=== PATIENT | female | born 1955 | race Two or more races ===

== ENCOUNTER 2017-07-04 13:18 | Emergency (ER) | payer SELFPAY ==
[~2017-07-04] VITALS: Ht 167.6 cm; Wt 113.4 kg
[2017-07-04 15:47] LABS: Basophils # (auto) 0.2 uL; Basophils % (auto) 2.4 % (0.0-2.0); Eosinophils # (auto) 0.1 uL; Eosinophils % (auto) 1.4 % (0.0-7.0); Hematocrit 43.1 % (36.0-46.0); Hemoglobin 14.5 g/dL (12.2-16.2); Lymphocytes % (auto) 21.3 % (10.0-50.0); Mean Corpuscular Hemoglobin 29.9 pg (28.0-32.0); Mean Corpuscular Hgb Conc. 33.6 g/dL (32.0-36.0); Mean Corpuscular Volume 88.8 fL (80.0-100.0); Monocytes # (auto) 0.4 uL; Monocytes % (auto) 4.7 % (0.0-12.0); Neutrophils # (auto) 6.7 uL; Neutrophils % (auto) 70.2 % (37.0-80.0); Nucleated Red Blood Cells % 0.3 %; Platelet Count (auto) 269 10^3/uL (140-450); Red Blood Cells 4.85 10^6/uL (4.0-5.20); Red Cell Distribution Width 13.6 % (11.8-14.3); White Blood Cell 9.5 10^3/uL (4.4-10.8)
[2017-07-04 15:55] LABS: Alanine Aminotransferase 29 U/L (13-56); Albumin 3.4 g/dL (3.4-5.0); Anion Gap 8 (5-15); Aspartate Aminotransferase 20 U/L (15-37); BUN/Creatinine Ratio 20.3; Blood Urea Nitrogen 16 mg/dL (7-18); Calcium 8.6 mg/dL (8.5-10.1); Carbon Dioxide 24 mmol/L (21-32); Chloride 104 mmol/L (98-107); GFR African American 95 mL/min; GFR Non-African American 79 mL/min; Glucose 313 mg/dL (74-106); Potassium 4.2 mmol/L (3.5-5.1); Sodium 136 mmol/L (136-145)
[2017-07-04 15:59] LABS: Alkaline Phosphatase 113 U/L (45-117); Bilirubin, Total 0.4 mg/dL (0.2-1.0); Total Protein 8.2 g/dL (6.4-8.2)
[2017-07-05] MEDS ORDERED: SODIUM CHLORIDE 0.9% 1,000 ML IV ONE (10:10)
[2017-07-05] MEDS ORDERED: InsuLIN REG 1unit/0.01ml Soln (100units/ml) IV ONE ×2 (10:15→11:45)
[2017-07-05] MEDS ORDERED: TETANUS-DIPTH-ACEL PERTUSSIS 0.5ML SYRG IM ONE (10:15)
[2017-07-05] MEDS ORDERED: ACETAMINOPHEN 500 MG TAB PO ONE (11:45)
[2017-07-05 12:02] LABS: Urine Bacteria NONE SEEN /hpf (None Seen); Urine Blood Negative /uL (Negative); Urine Specific Gravity 1.009 (1.001-1.035); Urine WBC 70 /hpf (0 - 5)
[2017-07-05 12:15] LABS: INR 1.28 (0.9-1.15); Partial Thromboplastin Time 28.2 sec (22.64-33.71)
[2017-07-05] MEDS ORDERED: cefTRIAXone 1GM/10ml IVPUSH 10 ML IV ONE (12:45)
[2017-07-05] MEDS ORDERED: KETOROLAC TROMETH 30 MG/ML 1ML VIAL IV ONE (12:45)
[2017-07-05] MEDS ORDERED: ONDANSETRON HCL 4 MG/2 ML VIAL ONE (13:07)
[2017-07-05] MEDS ORDERED: ONDANSETRON HCL 4 MG/2 ML VIAL IV ONE (13:15)
[2017-07-05 13:59] VITALS: BP 142/81
== END 2017-07-05 14:00 | disposition home or self-care (01) ==
LOC: ER 13:18
DX: S00.01XA Abrasion of scalp, initial encounter (principal); N39.0 Urinary tract infection, site not specified; I10 Essential (primary) hypertension; E11.9 Type 2 diabetes mellitus without complications; I48.91 Unspecified atrial fibrillation; Z90.89 Acquired absence of other organs; W19.XXXA Unspecified fall, initial encounter; Y93.89 Activity, other specified; Y99.8 Other external cause status; Y92.89 Other specified places as the place of occurrence of the external cause
CPT/HCPCS: 36415; 70450; 71020; 80053; 81001; 82962; 83735; 84443; 84484; 85025; 85610; 85730; 90715; 93005; 96361; 96374; 96375; 99285; J1815; J1885; J2405

== ENCOUNTER 2018-11-17 17:13 | Emergency (ER) | payer MEDICAID ==
[~2018-11-17] VITALS: Ht 167.6 cm; Wt 113.4 kg
[~2018-11-17 17:13] MED LIST: ASP81EC PO; CARV3.1240 PO; CITA-77 PO; DIGO0.2570 PO; DILT120T3 PO; FLUT110A INH; GABA-339 PO; HYDR25TA4 PO; IBUP800T24 PO; LISI40TA PO; METF-370 PO; OME20T PO; POTA10TA51 PO; RIVA20TA PO; SERDISK IN; SIMV10TA84 PO
[2018-11-17 17:52] LABS: Basophils # (auto) 0.1 uL; Basophils % (auto) 0.9 % (0.0-2.0); Eosinophils # (auto) 0.1 uL; Eosinophils % (auto) 1.5 % (0.0-7.0); Hemoglobin 14.6 g/dL (12.2-16.2); Lymphocytes # (auto) 2.2 uL; Lymphocytes % (auto) 23.5 % (10.0-50.0); Mean Corpuscular Hemoglobin 29.2 pg (28.0-32.0); Mean Corpuscular Hgb Conc. 33.3 g/dL (32.0-36.0); Mean Corpuscular Volume 87.8 fL (80.0-100.0); Monocytes # (auto) 0.5 uL; Monocytes % (auto) 5.6 % (0.0-12.0); Neutrophils # (auto) 6.3 uL; Neutrophils % (auto) 68.5 % (37.0-80.0); Nucleated Red Blood Cells % 0.1 %; Platelet Count (auto) 227 10^3/uL (140-450); Red Blood Cells 5.01 10^6/uL (4.0-5.20); Red Cell Distribution Width 14.1 % (11.8-14.3); White Blood Cell 9.2 10^3/uL (4.4-10.8)
[2018-11-17 18:08] LABS: Alanine Aminotransferase 22 U/L (13-56); Albumin 3.6 g/dL (3.4-5.0); Anion Gap 8 (5-15); Aspartate Aminotransferase 19 U/L (15-37); Blood Urea Nitrogen 20 mg/dL (7-18); Calcium 8.4 mg/dL (8.5-10.1); Carbon Dioxide 29 mmol/L (21-32); Chloride 100 mmol/L (98-107); Glucose 280 mg/dL (74-106); Potassium 4.2 mmol/L (3.5-5.1); Sodium 137 mmol/L (136-145)
[2018-11-17 18:12] LABS: Alkaline Phosphatase 118 U/L (45-117); BUN/Creatinine Ratio 19.2; Bilirubin, Total 0.5 mg/dL (0.2-1.0); GFR African American 69 mL/min; GFR Non-African American 57 mL/min
[2018-11-18] MEDS ORDERED: ACETAMINOPHEN 325 MG TAB PO ONE (06:45)
[2018-11-18 06:51] VITALS: BP 140/103
== END 2018-11-18 06:57 | disposition home or self-care (01) ==
LOC: ER 17:18
DX: L03.211 Cellulitis of face (principal); J45.909 Unspecified asthma, uncomplicated; E11.9 Type 2 diabetes mellitus without complications; E78.5 Hyperlipidemia, unspecified; I10 Essential (primary) hypertension; I48.91 Unspecified atrial fibrillation
CPT/HCPCS: 36415; 70450; 70486; 71046; 80053; 82962; 84484; 85025; 93005

== ENCOUNTER 2019-05-18 14:17 | Emergency (ER) | payer MEDICAID ==
[~2019-05-18] VITALS: Ht 165.1 cm; Wt 124.7 kg
[2019-05-18 14:40] VITALS: BP 155/79
[2019-05-18] MEDS ORDERED: HYDROcodone-ACET 10/325MG TAB PO ONE (16:30)
== END 2019-05-18 17:01 | disposition home or self-care (01) ==
LOC: EDBD 14:17 → ER 14:17
DX: M25.561 Pain in right knee (principal); R20.0 Anesthesia of skin; I48.91 Unspecified atrial fibrillation; J45.909 Unspecified asthma, uncomplicated; E11.9 Type 2 diabetes mellitus without complications; E78.5 Hyperlipidemia, unspecified; I10 Essential (primary) hypertension; Z79.899 Other long term (current) drug therapy

== ENCOUNTER 2020-03-07 12:00 | Inpatient (IN) | payer MEDICAID ==
[~2020-03-07] VITALS: Ht 167.6 cm; Wt 138.5 kg
[~2020-03-07 12:00] MED LIST changes: -ASP81EC PO; +ASPI-394 PO; +DIGO0.25 PO; -DIGO0.2570 PO; -LISI40TA PO; +LISI40TA11 PO
[2020-03-07] MEDS ORDERED: ENOXAPARIN SOD 100 MG/1 ML SYRINGE SC ONE (12:30)
[2020-03-07] MEDS ORDERED: methylPREDNISolone SOD SUCC 125 MG/2 ML VL IV ONE (12:30)
[2020-03-07] MEDS ORDERED: ZINC SULFATE 220mg CAP or TAB PO ONE (12:30)
[2020-03-07] MEDS ORDERED: MORPHINE SULF INJ 2 MG/ML SYRINGE 1ML IV ONE (12:30)
[2020-03-07] MEDS ORDERED: ASCORBIC ACID 500 MG TAB PO ONE (12:30)
[2020-03-07] MEDS ORDERED: AZITHROMYCIN 500MG/ 250ML 250 ML IV ONE (12:30)
[2020-03-07 12:40] LABS: Basophils # (auto) 0.3 10 ^3/uL (0-0.2); Basophils % (auto) 2.9 % (0.0-2.0); Eosinophils # (auto) 0.2 10 ^3/uL (0-0.8); Eosinophils % (auto) 2.4 % (0.0-7.0); Hematocrit 43.1 % (36.0-46.0); Hemoglobin 14.3 g/dL (12.2-16.2); Lymphocytes # (auto) 1.7 10 ^3/uL (0.4-5.4); Lymphocytes % (auto) 18.5 % (10.0-50.0); Mean Corpuscular Hemoglobin 29.3 pg (28.0-32.0); Mean Corpuscular Hgb Conc. 33.2 g/dL (32.0-36.0); Mean Corpuscular Volume 88.1 fL (80.0-100.0); Monocytes # (auto) 0.7 10 ^3/uL (0-1.3); Monocytes % (auto) 7.1 % (0.0-12.0); Neutrophils # (auto) 6.5 10 ^3/uL (1.6-8.6); Neutrophils % (auto) 69.1 % (37.0-80.0); Nucleated Red Blood Cells % 0.1 %; Platelet Count (auto) 381 10^3/uL (140-450); Red Blood Cells 4.89 10^6/uL (4.0-5.20); Red Cell Distribution Width 13.1 % (11.8-14.3); White Blood Cell 9.4 10^3/uL (4.4-10.8)
[2020-03-07 13:02] LABS: Albumin 3.3 g/dL (3.4-5.0); Anion Gap 7 (5-15); Blood Urea Nitrogen 13 mg/dL (7-18); Calcium 8.4 mg/dL (8.5-10.1); Carbon Dioxide 27 mmol/L (21-32); Chloride 102 mmol/L (98-107); Glucose 221 mg/dL (74-106); Magnesium 2.1 mg/dL (1.6-2.6); Potassium 3.4 mmol/L (3.5-5.1); Sodium 136 mmol/L (136-145)
[2020-03-07 13:10] LABS: Alanine Aminotransferase 20 U/L (13-56); Alkaline Phosphatase 92 U/L (45-117); Aspartate Aminotransferase 15 U/L (15-37); BUN/Creatinine Ratio 19.4; Bilirubin, Total 0.6 mg/dL (0.2-1.0); CRP High Sensitivity 1.06 mg/dL (< 0.3); GFR African American 114 mL/min; GFR Non-African American 94 mL/min; Lactate Dehydrogenase 196 U/L (84-246); Total Protein 7.7 g/dL (6.4-8.2)
[2020-03-07] MEDS ORDERED: NITROGLYCERIN 0.4 MG SL TAB SL PRN (16:15)
[2020-03-07] MEDS ORDERED: DEXTROSE (50%) 50ML SYRG IV PRN (16:15)
[2020-03-07] MEDS ORDERED: MORPHINE SULF INJ 2 MG/ML SYRINGE 1ML IV PRN (16:15)
[2020-03-07] MEDS ORDERED: PROMETHAZINE HCL 25 MG/ML 1ML IV PRN (16:15)
[2020-03-07] MEDS ORDERED: PROMETHAZINE W/CODEINE 5 ML ORAL SYRUP PO PRN (17:30)
[2020-03-07] MEDS: metFORMIN HYDROCHLORIDE 500 MG TAB PO SCH (17:52)
[2020-03-07] MEDS: ACCU-CHEK COMFORT CURVE STRIP VI SCH ×2 (18:07→23:40)
[2020-03-07] MEDS: InsuLIN REG 1unit/0.01ml Soln (100units/ml) SC SCH ×2 (18:07→23:45)
[2020-03-07] MEDS: SALMETEROL XINAFOATE 50 MCG IN SCH (22:00)
[2020-03-07] MEDS: FLUTICASONE PROPIONATE 250 MCG IN SCH (22:00)
[2020-03-07 22:43] VITALS: BP 141/98
[2020-03-07 22:45] VITALS: BP 141/98
--- NOTE | 2020-03-07 22:45 | NUR ---
pt arrived via wheelchair. pt transferred self to hospital bed.
--- NOTE | 2020-03-07 22:50 | NUR ---
pt given 2Lnc. respirations even and nonlabored.
[2020-03-08] MEDS: PIPERACILLIN-TAZOB 3.375GM 100 ML IV SCH ×4 (00:29→22:13)
[2020-03-08] MEDS: CARVEDILOL 3.125 MG TAB PO SCH ×3 (00:30→22:00)
[2020-03-08] MEDS: GABAPENTIN 300 MG CAP PO SCH ×4 (00:31→22:14)
[2020-03-08] MEDS: ATORVASTATIN 20 MG TAB PO SCH ×2 (00:31→22:13)
[2020-03-08] MEDS: IBUPROFEN 800 MG TAB PO PRN ×2 (00:40→11:55)
--- NOTE | 2020-03-08 01:33 | NUR ---
Lab called with patients Covid 19 positive result.
[2020-03-08] MEDS ORDERED: AZIT250T8 PO (02:17)
[2020-03-08] MEDS ORDERED: INSLISPI SC (02:17)
[2020-03-08] MEDS ORDERED: PRE1T PO (02:17)
[2020-03-08] MEDS ORDERED: BUSP15TA60 PO (02:17)
[2020-03-08] MEDS ORDERED: ATOR10TA52 PO (02:17)
[2020-03-08] MEDS ORDERED: DIPH25CA66 PO (02:17)
[2020-03-08] MEDS ORDERED: RIVA20TA PO (02:17)
[2020-03-08] MEDS ORDERED: INSLANTI SC (02:17)
[2020-03-08] MEDS ORDERED: IPRAAER6 IN (02:17)
[2020-03-08 05:00] VITALS: BP 135/90
[2020-03-08] MEDS: ACCU-CHEK COMFORT CURVE STRIP VI SCH ×3 (05:38→17:42)
[2020-03-08] MEDS: InsuLIN REG 1unit/0.01ml Soln (100units/ml) SC SCH ×3 (05:41→17:43)
[2020-03-08 05:55] LABS: Lactic Acid w/Reflex 2.3 mmol/L (0.4-2.0)
--- NOTE | 2020-03-08 07:30 | NUR ---
pt resting in right lateral position. respirations even and nonlabored on 2Lnc. endorsed care to day shift RN.
--- NOTE | 2020-03-08 07:30 | NUR ---
OPENING NOTE ASSUMED CARE OF PT. ALERT AND ORIENTED. NO S/S OF SOB/DISTRESS NOTED. BED SET TO LOWEST POSITION/LOCKED. BEDSIDE RAILS UP X2. CALL LIGHT WITHIN REACH. INSTRUCTED PT TO CALL FOR ASSISTANCE. PT VERBALIZED UNDERSTANDING. WILL CONTINUE TO MONITOR Q 1HR AND PRN.
[2020-03-08] MEDS: metFORMIN HYDROCHLORIDE 500 MG TAB PO SCH ×2 (08:11→17:42)
[2020-03-08 08:27] VITALS: BP 120/69
[2020-03-08] MEDS: SALMETEROL XINAFOATE 50 MCG IN SCH ×2 (09:17→22:00)
[2020-03-08] MEDS: FLUTICASONE PROPIONATE 250 MCG IN SCH ×2 (09:17→22:00)
[2020-03-08] MEDS: ASPirin-EC 81 mg tab PO SCH (09:18)
[2020-03-08] MEDS: ZINC SULFATE 220mg CAP or TAB PO SCH (09:18)
[2020-03-08] MEDS: CITALOPRAM HYDROBR 20 MG TAB PO SCH (09:18)
[2020-03-08] MEDS: PANTOPRAZOLE 40 MG TAB PO SCH (09:19)
[2020-03-08] MEDS: POTASSIUM CHL 10 Meq TABLET PO SCH (09:19)
[2020-03-08] MEDS: CHOLECALCIFEROL (VITD3) 1,000UNIT=25mCg TAB PO SCH (09:24)
[2020-03-08] MEDS: RIVAROXABAN 20 MG TAB PO SCH (09:24)
[2020-03-08] MEDS: HCTZ 25 MG TAB PO SCH (09:24)
[2020-03-08] MEDS: LISINOPRIL 20 MG TAB PO SCH (09:26)
[2020-03-08] MEDS: dilTIAZem 120MG ER CAP PO SCH (09:34)
[2020-03-08] MEDS: DIGOXIN 0.25 MG TAB PO SCH (09:35)
[2020-03-08 12:18] VITALS: BP 121/60
[2020-03-08 17:00] VITALS: BP 103/63
[2020-03-08] MEDS: HYDROcodone-ACET 5/325MG TAB PO PRN (17:43)
[2020-03-08 21:54] VITALS: BP 104/61
[2020-03-08] MEDS: ALBUTEROL SULF HFA 90MCG INH 200DOSE IN SCH (23:38)
[2020-03-09] VITALS (7 sets, daily range): BP systolic 99–141; BP diastolic 60–78
[2020-03-09] MEDS: ACCU-CHEK COMFORT CURVE STRIP VI SCH ×4 (00:56→17:59)
[2020-03-09] MEDS: InsuLIN REG 1unit/0.01ml Soln (100units/ml) SC SCH ×4 (00:58→17:59)
[2020-03-09] MEDS: PIPERACILLIN-TAZOB 3.375GM 100 ML IV SCH ×2 (05:39→15:48)
[2020-03-09] MEDS: GABAPENTIN 300 MG CAP PO SCH ×2 (05:39→15:48)
[2020-03-09] MEDS: ALBUTEROL SULF HFA 90MCG INH 200DOSE IN SCH ×3 (06:51→20:25)
--- NOTE | 2020-03-09 06:58 | NUR ---
closing note pt resting in semi fowlers with HOB at 30 degrees. pt is A&Ox4. respirations even and nonlabored on 2Lnc. no s/s of distress or discomfort. bed in low locked position, call light within reach.
[2020-03-09] MEDS: metFORMIN HYDROCHLORIDE 500 MG TAB PO SCH ×2 (08:16→17:58)
[2020-03-09] MEDS: SALMETEROL XINAFOATE 50 MCG IN SCH (09:23)
[2020-03-09] MEDS: FLUTICASONE PROPIONATE 250 MCG IN SCH (09:23)
[2020-03-09] MEDS: dilTIAZem 120MG ER CAP PO SCH (09:24)
[2020-03-09] MEDS: ZINC SULFATE 220mg CAP or TAB PO SCH (09:24)
[2020-03-09] MEDS: ASPirin-EC 81 mg tab PO SCH (09:25)
[2020-03-09] MEDS: CARVEDILOL 3.125 MG TAB PO SCH (09:25)
[2020-03-09] MEDS: CITALOPRAM HYDROBR 20 MG TAB PO SCH (09:25)
[2020-03-09] MEDS: HCTZ 25 MG TAB PO SCH (09:27)
[2020-03-09] MEDS: DIGOXIN 0.25 MG TAB PO SCH (09:27)
[2020-03-09] MEDS: POTASSIUM CHL 10 Meq TABLET PO SCH (09:27)
[2020-03-09] MEDS: LISINOPRIL 20 MG TAB PO SCH (09:28)
[2020-03-09] MEDS: PANTOPRAZOLE 40 MG TAB PO SCH (09:28)
[2020-03-09] MEDS: CHOLECALCIFEROL (VITD3) 1,000UNIT=25mCg TAB PO SCH (09:28)
[2020-03-09 09:57] LABS: Basophils # (auto) 0.2 10 ^3/uL (0-0.2); Basophils % (auto) 2.1 % (0.0-2.0); Eosinophils # (auto) 0.1 10 ^3/uL (0-0.8); Eosinophils % (auto) 1.1 % (0.0-7.0); Hematocrit 39.1 % (36.0-46.0); Hemoglobin 13.2 g/dL (12.2-16.2); Lymphocytes # (auto) 2.1 10 ^3/uL (0.4-5.4); Lymphocytes % (auto) 24.3 % (10.0-50.0); Mean Corpuscular Hgb Conc. 33.7 g/dL (32.0-36.0); Monocytes # (auto) 0.6 10 ^3/uL (0-1.3); Monocytes % (auto) 7.3 % (0.0-12.0); Neutrophils # (auto) 5.8 10 ^3/uL (1.6-8.6); Neutrophils % (auto) 65.2 % (37.0-80.0); Nucleated Red Blood Cells % 0.1 %; Platelet Count (auto) 349 10^3/uL (140-450); Red Blood Cells 4.39 10^6/uL (4.0-5.20); Red Cell Distribution Width 13.2 % (11.8-14.3); White Blood Cell 8.8 10^3/uL (4.4-10.8)
[2020-03-09 10:07] LABS: Calcium 8.4 mg/dL (8.5-10.1); Potassium 3.9 mmol/L (3.5-5.1)
[2020-03-09 10:12] LABS: Bilirubin, Total 0.6 mg/dL (0.2-1.0); CRP High Sensitivity 0.88 mg/dL (< 0.3); Total Protein 6.7 g/dL (6.4-8.2)
--- NOTE | 2020-03-09 10:44 | NUR ---
SPO2 PATIENT AMBULATED WITH THIS NURSE 44 FEET ON ROOM AIR, O2 SATURATION AT 65%. SOB NOTED WHILE AMBULATING. Addendum: 03/09/20 at 1049 by Evelyn Sim RN CORRECTION, PATIENT O2 SATURATION 95%
[2020-03-09] MEDS: HYDROcodone-ACET 5/325MG TAB PO PRN (12:07)
--- NOTE | 2020-03-09 12:41 | NUR ---
PULMONARY SPOKE TO DR. SOTOMAYOR VIA TELEPHONE. PER MD PATIENT IS CLEARED FOR DISCHARGE FROM HE STANDPOINT.
--- NOTE | 2020-03-09 16:00 | NUR ---
TRANSPORTATION PATIENT WILL BE TRANSPORTED HOME BY [employer] . ETA [phone].
--- NOTE | 2020-03-09 16:16 | NUR ---
Received a call from STACIA Rivas advising me patient will need transportation home. Faxed transportation form request to [facility] requesting for a 17:00 via [employer]. [facility] is aware that patient is positive covid. Per Jesica with [facility] transportation has been arranged with [employer] via [employer] with a 17:00 pear picker time . Informed STACIA Rivas.
--- NOTE | 2020-03-09 17:03 | NUR ---
Discharge Discharge instructions given as ordered. Encourage to follow up with Dr. Melara on 04/04/2020 at 10:15, phone appointment only. All questions and concerns addressed. Patient verbalized understanding. Home medications returned to patient. IV removed with catheter intact. Telemetry unit returned to ICU.
[2020-03-09] MEDS: RIVAROXABAN 20 MG TAB PO SCH (17:59)
--- NOTE | 2020-03-09 21:15 | NUR ---
TRANSPORTATION PATIENT TRANSPORTED HOME BY [employer] AT THIS TIME. NO S/S OF PAIN OR DISTRESS.
== END 2020-03-09 21:15 | disposition home or self-care (01) | DRG 137 ==
LOC: EDBD 12:00 → ER 12:00 → TELE 12:01 → TELE-EAST 22:40
PROVIDERS: ADMIT Hospitalist; ATTEND Hospitalist
DX: U07.1 COVID-19 (principal); J12.89 Other viral pneumonia; I11.9 Hypertensive heart disease without heart failure; E66.01 Morbid (severe) obesity due to excess calories; I48.91 Unspecified atrial fibrillation; E78.5 Hyperlipidemia, unspecified; J45.909 Unspecified asthma, uncomplicated; E78.00 Pure hypercholesterolemia, unspecified; Z80.3 Family history of malignant neoplasm of breast; Z82.49 Family history of ischemic heart disease and other diseases of the circulatory system; Z68.42 Body mass index [BMI] 45.0-49.9, adult; Z83.3 Family history of diabetes mellitus; Z86.19 Personal history of other infectious and parasitic diseases; Z90.89 Acquired absence of other organs; E10.65 Type 1 diabetes mellitus with hyperglycemia
CPT/HCPCS: 36415; 36600; 71045; 80053; 82728; 82805; 82962; 83036; 83605; 83615; 83735; 83880; 84484; 85025; 85379; 86141; 87040; 93005; 94640; 96365; 96366; 96372; 96375; G0378; J1815; J2543

== ENCOUNTER 2020-05-25 22:32 | Inpatient (IN) | payer MEDICAID ==
[~2020-05-25] VITALS: Ht 162.6 cm; Wt 136.1 kg
[~2020-05-25 22:32] MED LIST changes: +ATOR10TA52 PO; +BUSP15TA60 PO; -CARV3.1240 PO; -DIGO0.25 PO; -IBUP800T24 PO; +INSLANTI SC; +INSLISPI SC; +IPRAAER6 IN; +PRE1T PO
[2020-05-25 23:55] LABS: Basophils # (auto) 0.1 10 ^3/uL (0-0.2); Basophils % (auto) 1.3 % (0.0-2.0); Eosinophils # (auto) 0.2 10 ^3/uL (0-0.8); Eosinophils % (auto) 2.1 % (0.0-7.0); Hematocrit 39.7 % (36.0-46.0); Lymphocytes # (auto) 2.1 10 ^3/uL (0.4-5.4); Lymphocytes % (auto) 28.1 % (10.0-50.0); Mean Corpuscular Hemoglobin 29.3 pg (28.0-32.0); Mean Corpuscular Hgb Conc. 32.8 g/dL (32.0-36.0); Mean Corpuscular Volume 89.2 fL (80.0-100.0); Monocytes # (auto) 0.4 10 ^3/uL (0-1.3); Monocytes % (auto) 5.7 % (0.0-12.0); Neutrophils # (auto) 4.8 10 ^3/uL (1.6-8.6); Neutrophils % (auto) 62.8 % (37.0-80.0); Nucleated Red Blood Cells % 0.1 %; Platelet Count (auto) 250 10^3/uL (140-450); Red Blood Cells 4.45 10^6/uL (4.0-5.20); Red Cell Distribution Width 13.9 % (11.8-14.3); White Blood Cell 7.6 10^3/uL (4.4-10.8)
[2020-05-26 00:10] LABS: INR 1.02 (0.9-1.15); Partial Thromboplastin Time 26.3 sec (23.0-31.2)
[2020-05-26 00:11] LABS: Alanine Aminotransferase 24 U/L (13-56); Albumin 3.3 g/dL (3.4-5.0); Anion Gap 7 (5-15); Aspartate Aminotransferase 14 U/L (15-37); BUN/Creatinine Ratio 20.5; Blood Urea Nitrogen 15 mg/dL (7-18); Calcium 8.2 mg/dL (8.5-10.1); Carbon Dioxide 25 mmol/L (21-32); Chloride 108 mmol/L (98-107); GFR African American 104 mL/min; GFR Non-African American 86 mL/min; Glucose 196 mg/dL (74-106); Potassium 3.6 mmol/L (3.5-5.1); Sodium 140 mmol/L (136-145)
[2020-05-26 00:16] LABS: Alkaline Phosphatase 95 U/L (45-117); Bilirubin, Total 0.3 mg/dL (0.2-1.0); Total Protein 7.4 g/dL (6.4-8.2)
[2020-05-26] MEDS ORDERED: ONDANSETRON HCL 4 MG/2 ML VIAL IV ONE (02:15)
[2020-05-26] MEDS ORDERED: HYDROcodone-ACET 5/325MG TAB PO ONE (02:15)
[2020-05-26] MEDS ORDERED: ENOXAPARIN SOD 100 MG/1 ML SYRINGE SC ONE (04:45)
[2020-05-26] MEDS ORDERED: HEPARIN SODIUM (PORCINE) 5000 UNITS/ML 1ML VIAL IV ONE (11:15)
[2020-05-26] MEDS ORDERED: HEPARIN DRIP/D5W 100UNITS/ML 250 ML IV SCH (11:15)
[2020-05-26 11:33] LABS: Basophils # (auto) 0.1 10 ^3/uL (0-0.2); Basophils % (auto) 1.2 % (0.0-2.0); Eosinophils # (auto) 0.1 10 ^3/uL (0-0.8); Eosinophils % (auto) 1.3 % (0.0-7.0); Hemoglobin 13.2 g/dL (12.2-16.2); Lymphocytes # (auto) 1.9 10 ^3/uL (0.4-5.4); Lymphocytes % (auto) 27.9 % (10.0-50.0); Mean Corpuscular Hemoglobin 29.4 pg (28.0-32.0); Monocytes # (auto) 0.4 10 ^3/uL (0-1.3); Monocytes % (auto) 5.7 % (0.0-12.0); Neutrophils # (auto) 4.4 10 ^3/uL (1.6-8.6); Neutrophils % (auto) 63.9 % (37.0-80.0); Nucleated Red Blood Cells % 0.1 %; Platelet Count (auto) 245 10^3/uL (140-450); Red Cell Distribution Width 13.9 % (11.8-14.3); White Blood Cell 6.8 10^3/uL (4.4-10.8)
[2020-05-26 11:47] LABS: INR 1.03 (0.9-1.15); Partial Thromboplastin Time 28.5 sec (23.0-31.2)
[2020-05-26] MEDS ORDERED: IPRATROPIUM-ALBUTEROL 20mCg/100mCg INHALER IN PRN (12:15)
[2020-05-26] MEDS ORDERED: MORPHINE SULF INJ 2 MG/ML SYRINGE 1ML IV PRN ×2 (12:15→12:30)
[2020-05-26] MEDS ORDERED: ATORVASTATIN 20 MG TAB PO ONE (12:15)
[2020-05-26] MEDS ORDERED: NITROGLYCERIN 0.4 MG SL TAB SL PRN (12:15)
[2020-05-26] MEDS ORDERED: DEXTROSE (50%) 50ML SYRG IV PRN (12:15)
[2020-05-26 12:20] VITALS: BP 165/95
[2020-05-26] MEDS ORDERED: NITROGLYCERIN 0.4MG/HR TOPICAL PATCH TD PRN (12:30)
[2020-05-26] MEDS ORDERED: ONDANSETRON HCL 4 MG/2 ML VIAL IV PRN (12:30)
[2020-05-26] MEDS ORDERED: ACETAMINOPHEN 325 MG TAB PO PRN (12:30)
[2020-05-26] MEDS ORDERED: HCTZ 25 MG TAB PO ONE (13:00)
[2020-05-26] MEDS ORDERED: CITALOPRAM HYDROBR 20 MG TAB PO ONE (13:00)
[2020-05-26] MEDS ORDERED: LISINOPRIL 20 MG TAB PO ONE (13:15)
[2020-05-26] MEDS ORDERED: POTASSIUM CHL 10 Meq TABLET PO ONE (13:15)
[2020-05-26] MEDS ORDERED: predniSONE 20 MG TAB PO ONE (13:15)
[2020-05-26] MEDS ORDERED: dilTIAZem 120MG ER CAP PO ONE (13:15)
[2020-05-26] MEDS ORDERED: OMEPRAZOLE 20MG/10ML ORAL SUSP PO ONE (13:15)
[2020-05-26] MEDS ORDERED: predniSONE 1 MG TAB PO ONE (13:15)
[2020-05-26] MEDS: ASPirin 81 mg TAB PO SCH (13:25)
[2020-05-26 13:34] LABS: Cholesterol 130 mg/dL (< 200); HDL Cholesterol 42 mg/dL (40-59); LDL Cholesterol 86 mg/dL (< 100); Triglycerides 80 mg/dL (< 150)
[2020-05-26] MEDS: D5W/SOD CHL 0.45% 1,000 ML IV SCH ×2 (13:46→22:15)
[2020-05-26 13:50] LABS: BUN/Creatinine Ratio 25.5; Calcium 8.6 mg/dL (8.5-10.1); Potassium 3.8 mmol/L (3.5-5.1)
[2020-05-26] MEDS ORDERED: GABAPENTIN 300 MG CAP PO SCH (14:00)
[2020-05-26] MEDS ORDERED: PANTOPRAZOLE 40 MG TAB PO ONE (14:15)
[2020-05-26 17:16] LABS: Urine Bacteria FEW /hpf (None Seen); Urine Blood Negative /uL (Negative); Urine Mucus FEW (None Seen); Urine Specific Gravity 1.024 (1.001-1.035); Urine WBC 86 /hpf (0 - 5)
[2020-05-26 17:37] LABS: Alcohol, Urine < 3.0 mg/dL (0-10); Opiate Scree,Urine POSITIVE (NEGATIVE)
[2020-05-26 17:38] LABS: Amphetamine Screen, Urine NEGATIVE (NEGATIVE); Barbiturate Scree,Urine NEGATIVE (NEGATIVE); Benzodiazephine Screen, Urine NEGATIVE (NEGATIVE); Cannabinoid Screen, Urine NEGATIVE (NEGATIVE); Cocaine Screen, Urine NEGATIVE (NEGATIVE); Phencyclidine Screen, Urine NEGATIVE (NEGATIVE)
[2020-05-26] MEDS ORDERED: ALBUTEROL SULF 2.5 MG/0.5ML(0.5%) NEB SOLN NEB PRN (18:00)
[2020-05-26] MEDS ORDERED: IPRATROPIUM BROM 0.5 MG/2.5ML INH SOL NEB PRN (18:00)
[2020-05-26] MEDS: ACCU-CHEK COMFORT CURVE STRIP VI SCH (18:14)
[2020-05-26] MEDS: InsuLIN REG 1unit/0.01ml Soln (100units/ml) SC SCH (18:20)
[2020-05-26] MEDS: HYDROcodone-ACET 5/325MG TAB PO PRN (18:27)
--- NOTE | 2020-05-26 19:15 | NUR ---
ASSESSED PT @ THIS TIME FOR PRN MED NEB TX. PT IS AWAKE AND ALERT AND SITTING UP IN BED CURRENTLY ON R/A SPO2 96%, HR 107 AND RR 18. BS ARE DIMINISHED T/O. NO DISTRESS NOTED. SHE IS AWARE TO CALL IF SHE FEELS SOB.
[2020-05-26] MEDS: RIVAROXABAN 20 MG TAB PO SCH (20:34)
[2020-05-26] MEDS ORDERED: INSULIN LANTUS (GLARGINE) 1 /0.01ml (100units/ml) SC SCH (22:00)
[2020-05-26] MEDS: busPIRone HCL 10 MG TAB PO SCH (22:35)
[2020-05-26] MEDS: ATORVASTATIN 20 MG TAB PO SCH (22:35)
[2020-05-26] MEDS: predniSONE 20 MG TAB PO SCH (22:36)
[2020-05-27] MEDS: InsuLIN REG 1unit/0.01ml Soln (100units/ml) SC SCH ×4 (00:34→18:39)
[2020-05-27] MEDS: ACCU-CHEK COMFORT CURVE STRIP VI SCH ×4 (00:34→18:00)
[2020-05-27 05:55] LABS: Basophils # (auto) 0 10 ^3/uL (0-0.2); Basophils % (auto) 0.5 % (0.0-2.0); Eosinophils # (auto) 0 10 ^3/uL (0-0.8); Eosinophils % (auto) 0.1 % (0.0-7.0); Hematocrit 42.2 % (36.0-46.0); Hemoglobin 13.8 g/dL (12.2-16.2); Lymphocytes % (auto) 13.6 % (10.0-50.0); Mean Corpuscular Hemoglobin 29.2 pg (28.0-32.0); Mean Corpuscular Hgb Conc. 32.6 g/dL (32.0-36.0); Mean Corpuscular Volume 89.4 fL (80.0-100.0); Monocytes # (auto) 0.2 10 ^3/uL (0-1.3); Monocytes % (auto) 2.2 % (0.0-12.0); Neutrophils # (auto) 6.2 10 ^3/uL (1.6-8.6); Neutrophils % (auto) 83.6 % (37.0-80.0); Nucleated Red Blood Cells % 0.1 %; Platelet Count (auto) 265 10^3/uL (140-450); Red Blood Cells 4.73 10^6/uL (4.0-5.20); Red Cell Distribution Width 13.6 % (11.8-14.3); White Blood Cell 7.4 10^3/uL (4.4-10.8)
[2020-05-27 06:20] LABS: Calcium 8.8 mg/dL (8.5-10.1); Potassium 4.1 mmol/L (3.5-5.1)
[2020-05-27] MEDS: HYDROcodone-ACET 5/325MG TAB PO PRN ×2 (06:27→22:40)
--- NOTE | 2020-05-27 07:00 | NUR ---
Respiratory note: ASSESSED FOR PRN MED NEB TX. PT IS AWAKE AND ALERT AND SITTING UP IN BED CURRENTLY ON R/A SPO2 95%, HR 66, RR 18, BS ARE DIMINISHED T/O. NO DISTRESS NOTED. PT NOTIFY TO HAVE RT PAGED FOR NEEDED TX
[2020-05-27] MEDS: D5W/SOD CHL 0.45% 1,000 ML IV SCH ×2 (08:35→18:39)
[2020-05-27] MEDS: busPIRone HCL 10 MG TAB PO SCH (09:30)
[2020-05-27] MEDS: ATORVASTATIN 20 MG TAB PO SCH (09:34)
[2020-05-27] MEDS: predniSONE 20 MG TAB PO SCH (09:35)
[2020-05-27] MEDS: ASPirin 81 mg TAB PO SCH (09:36)
[2020-05-27] MEDS ORDERED: HCTZ 25 MG TAB PO SCH (10:00)
[2020-05-27] MEDS ORDERED: CITALOPRAM HYDROBR 20 MG TAB PO SCH (10:00)
[2020-05-27] MEDS ORDERED: PANTOPRAZOLE 40 MG TAB PO SCH (10:00)
[2020-05-27] MEDS ORDERED: dilTIAZem 120MG ER CAP PO SCH (10:00)
[2020-05-27] MEDS ORDERED: POTASSIUM CHL 10 Meq TABLET PO SCH (10:00)
[2020-05-27] MEDS ORDERED: OMEPRAZOLE 20MG/10ML ORAL SUSP PO SCH (10:00)
[2020-05-27] MEDS ORDERED: LISINOPRIL 20 MG TAB PO SCH (10:00)
[2020-05-27] MEDS: RIVAROXABAN 20 MG TAB PO SCH (18:36)
[2020-05-27 19:35] VITALS: BP 145/74
== END 2020-05-27 22:33 | disposition home or self-care (01) | DRG 190 ==
LOC: EDBD 22:32 → ER 22:37 → TELE 22:38
PROVIDERS: ADMIT Internal Medicine; ATTEND Internal Medicine
DX: I21.4 Non-ST elevation (NSTEMI) myocardial infarction (principal); E66.01 Morbid (severe) obesity due to excess calories; Z68.43 Body mass index [BMI] 50.0-59.9, adult; I48.91 Unspecified atrial fibrillation; E78.5 Hyperlipidemia, unspecified; F32.9 Major depressive disorder, single episode, unspecified; Z20.828 Contact with and (suspected) exposure to other viral communicable diseases; I10 Essential (primary) hypertension; E11.9 Type 2 diabetes mellitus without complications; J45.909 Unspecified asthma, uncomplicated; Z79.01 Long term (current) use of anticoagulants; Z83.3 Family history of diabetes mellitus; Z88.0 Allergy status to penicillin; Z79.899 Other long term (current) drug therapy
CPT/HCPCS: 36415; 71045; 80048; 80053; 80061; 80307; 81001; 82962; 83880; 84484; 85025; 85610; 85652; 85730; 86141; 86225; 86235; 87426; 93005; 93306; 96375; G0378; J1815; J2405

== ENCOUNTER 2022-08-05 07:16 | Inpatient (IN) | payer MEDICARE, MEDICAID ==
[~2022-08-05] VITALS: Ht 170.2 cm; Wt 115.0 kg
[2022-08-05] MEDS: ENOXAPARIN SOD 100 MG/1 ML SYRINGE SC SCH (01:30)
[~2022-08-05 07:16] MED LIST changes: -GABA-339 PO
[2022-08-05] MEDS ORDERED: LIDOCAINE VISCOUS 2% 15ML UD PO ONE (08:00)
[2022-08-05] MEDS ORDERED: ONDANSETRON HCL 4 MG/2 ML VIAL IV ONE (08:00)
[2022-08-05] MEDS ORDERED: FAMOTIDINE (10MG/ML) 2ML VL IV ONE (08:00)
[2022-08-05] MEDS ORDERED: MAALOX PLUS or MAALOX 30 ML PO ONE (08:00)
[2022-08-05 08:13] LABS: Basophils # (auto) 0.1 10 ^3/uL (0-0.2); Basophils % (auto) 0.7 % (0.0-2.0); Eosinophils # (auto) 0.1 10 ^3/uL (0-0.8); Eosinophils % (auto) 0.5 % (0.0-7.0); Hematocrit 43.1 % (36.0-46.0); Hemoglobin 14.1 g/dL (12.2-16.2); Lymphocytes # (auto) 1.1 10 ^3/uL (0.4-5.4); Lymphocytes % (auto) 8.8 % (10.0-50.0); Mean Corpuscular Hemoglobin 29.7 pg (28.0-32.0); Mean Corpuscular Hgb Conc. 32.8 g/dL (32.0-36.0); Mean Corpuscular Volume 90.6 fL (80.0-100.0); Monocytes # (auto) 0.5 10 ^3/uL (0-1.3); Monocytes % (auto) 4.6 % (0.0-12.0); Neutrophils # (auto) 10.2 10 ^3/uL (1.6-8.6); Neutrophils % (auto) 85.4 % (37.0-80.0); Nucleated Red Blood Cells % 0.1 %; Red Blood Cells 4.75 10^6/uL (4.0-5.20); Red Cell Distribution Width 13.7 % (11.8-14.3); White Blood Cell 11.9 10^3/uL (4.4-10.8)
[2022-08-05 08:31] LABS: Albumin 3.8 g/dL (3.4-5.0); Calcium 8.5 mg/dL (8.5-10.1); Magnesium 1.9 mg/dL (1.6-2.6); Potassium 3.9 mmol/L (3.5-5.1)
[2022-08-05 08:35] LABS: BUN/Creatinine Ratio 24.7; Bilirubin, Total 0.3 mg/dL (0.2-1.0); Total Protein 7.8 g/dL (6.4-8.2)
[2022-08-05] MEDS ORDERED: LABETALOL HCL 5 MG/ML 4ML SYRINGE IV ONE (10:15)
[2022-08-05 10:53] LABS: INR 1.03 (0.9-1.15); Partial Thromboplastin Time 26.9 sec (24.6-33.4)
[2022-08-05] MEDS ORDERED: HYDROcodone-ACET 5/325MG TAB PO ONE (14:00)
[2022-08-05] MEDS ORDERED: NITROGLYCERIN 0.4 MG SL TAB SL PRN (14:15)
[2022-08-05] MEDS ORDERED: ACETAMINOPHEN 325 MG TAB PO PRN (14:15)
[2022-08-05] MEDS ORDERED: MORPHINE SULFATE INJ 2 MG/ml SYRG IV PRN (14:15)
[2022-08-05] MEDS ORDERED: DEXTROSE (50%) 50ML SYRG IV PRN (14:15)
[2022-08-05] MEDS ORDERED: TEMAZEPAM 15 MG CAP PO PRN (14:15)
[2022-08-05] MEDS ORDERED: DOCUSATE SOD 100 MG CAP PO PRN (14:15)
[2022-08-05] MEDS ORDERED: LORazepam 2MG/ML-1ML VIAL IV PRN (21:00)
[2022-08-05 22:09] LABS: Cholesterol 103 mg/dL (< 200)
[2022-08-05 22:12] LABS: HDL Cholesterol 52 mg/dL (40-59); LDL Cholesterol 55 mg/dL (< 100); Triglycerides 49 mg/dL (< 150)
[2022-08-06] MEDS: InsuLIN REG 1unit/0.01ml Soln (100units/ml) SC SCH ×7 (00:42→20:00)
[2022-08-06] MEDS: ACCU-CHEK COMFORT CURVE STRIP VI SCH ×7 (00:42→20:05)
[2022-08-06] MEDS: HYDROcodone-ACET 5/325MG TAB PO PRN ×5 (00:42→23:07)
[2022-08-06] MEDS: ATORVASTATIN 20 MG TAB PO SCH ×2 (01:13→21:44)
[2022-08-06] MEDS: ENOXAPARIN SOD 100 MG/1 ML SYRINGE SC SCH (01:14)
[2022-08-06 06:51] LABS: Basophils # (auto) 0.1 10 ^3/uL (0-0.2); Basophils % (auto) 1.2 % (0.0-2.0); Eosinophils # (auto) 0.1 10 ^3/uL (0-0.8); Eosinophils % (auto) 1.5 % (0.0-7.0); Hematocrit 40.3 % (36.0-46.0); Hemoglobin 13.1 g/dL (12.2-16.2); Lymphocytes # (auto) 1.9 10 ^3/uL (0.4-5.4); Lymphocytes % (auto) 27.5 % (10.0-50.0); Mean Corpuscular Hemoglobin 29.5 pg (28.0-32.0); Mean Corpuscular Hgb Conc. 32.6 g/dL (32.0-36.0); Mean Corpuscular Volume 90.7 fL (80.0-100.0); Monocytes # (auto) 0.5 10 ^3/uL (0-1.3); Monocytes % (auto) 7.2 % (0.0-12.0); Neutrophils # (auto) 4.2 10 ^3/uL (1.6-8.6); Neutrophils % (auto) 62.6 % (37.0-80.0); Nucleated Red Blood Cells % 0.1 %; Red Blood Cells 4.44 10^6/uL (4.0-5.20); Red Cell Distribution Width 13.6 % (11.8-14.3); White Blood Cell 6.8 10^3/uL (4.4-10.8)
[2022-08-06 06:54] LABS: Albumin 3.6 g/dL (3.4-5.0); Calcium 8.7 mg/dL (8.5-10.1)
[2022-08-06 06:59] LABS: BUN/Creatinine Ratio 28.2; Bilirubin, Total 0.6 mg/dL (0.2-1.0); Total Protein 7.2 g/dL (6.4-8.2)
[2022-08-06] MEDS: ONDANSETRON HCL 4 MG/2 ML VIAL IV PRN ×3 (07:03→17:51)
[2022-08-06] MEDS ORDERED: ENOXAPARIN SOD 40 MG/0.4 ML SYRINGE SC SCH (10:00)
[2022-08-06 14:21] VITALS: BP 154/85
[2022-08-06] MEDS ORDERED: DILT120C44 PO (14:46)
[2022-08-06] MEDS ORDERED: HYDR-4072 PO (14:46)
[2022-08-06] MEDS ORDERED: ALBUAER3 INH (14:46)
[2022-08-06] MEDS ORDERED: DIPH25CA66 PO (14:46)
[2022-08-06] MEDS: RIVAROXABAN 20 MG TAB PO SCH (17:43)
[2022-08-06 22:00] VITALS: BP 155/73
[2022-08-07] MEDS: ACCU-CHEK COMFORT CURVE STRIP VI SCH ×6 (00:20→20:21)
[2022-08-07] MEDS: MORPHINE SULFATE INJ 2 MG/ml SYRG IV PRN ×3 (02:23→13:18)
[2022-08-07] MEDS: InsuLIN REG 1unit/0.01ml Soln (100units/ml) SC SCH ×6 (04:00→20:00)
[2022-08-07 05:00] VITALS: BP 144/75
[2022-08-07 08:00] VITALS: BP 156/96
[2022-08-07] MEDS: LISINOPRIL 20 MG TAB PO SCH (09:29)
[2022-08-07] MEDS: PANTOPRAZOLE 40 MG TAB PO SCH (09:30)
[2022-08-07] MEDS: FUROSEMIDE 40 MG/4 ML VIAL IV SCH (09:34)
[2022-08-07 12:00] VITALS: BP 148/94
[2022-08-07 16:00] VITALS: BP 156/92
[2022-08-07] MEDS: HYDROcodone-ACET 5/325MG TAB PO PRN (16:10)
[2022-08-07] MEDS: RIVAROXABAN 20 MG TAB PO SCH (18:00)
[2022-08-07] MEDS: traMADol HCL 50 MG TAB PO PRN (20:31)
[2022-08-07] MEDS: ATORVASTATIN 20 MG TAB PO SCH (21:48)
[2022-08-07 22:00] VITALS: BP 139/102
[2022-08-07 22:48] LABS: Urine Bacteria NONE SEEN /hpf (None Seen); Urine Blood Negative /uL (Negative); Urine Specific Gravity 1.017 (1.001-1.035); Urine WBC 11 /hpf (0 - 5)
[2022-08-08] MEDS: ACCU-CHEK COMFORT CURVE STRIP VI SCH ×6 (00:15→20:40)
[2022-08-08] MEDS: InsuLIN REG 1unit/0.01ml Soln (100units/ml) SC SCH ×6 (00:16→20:41)
[2022-08-08] MEDS: traMADol HCL 50 MG TAB PO PRN ×3 (02:44→20:34)
[2022-08-08 05:00] VITALS: BP 120/81
[2022-08-08 08:00] VITALS: BP 150/88
[2022-08-08] MEDS ORDERED: LEVO500T31 PO (08:15)
[2022-08-08 09:13] LABS: Calcium 8.7 mg/dL (8.5-10.1); Potassium 3.7 mmol/L (3.5-5.1)
[2022-08-08 09:20] LABS: Albumin 3.7 g/dL (3.4-5.0); Bilirubin, Total 0.9 mg/dL (0.2-1.0); Magnesium 1.8 mg/dL (1.6-2.6); Total Protein 7.5 g/dL (6.4-8.2)
[2022-08-08] MEDS: LISINOPRIL 20 MG TAB PO SCH (09:20)
[2022-08-08] MEDS: FUROSEMIDE 40 MG/4 ML VIAL IV SCH (09:20)
[2022-08-08] MEDS: levoFLOXacin 500MG 100 ML IV SCH (09:20)
[2022-08-08] MEDS: PANTOPRAZOLE 40 MG TAB PO SCH (09:20)
[2022-08-08] MEDS ORDERED: LORazepam 0.5 MG TAB PO ONE (10:30)
[2022-08-08 12:00] VITALS: BP 116/83
[2022-08-08 16:00] VITALS: BP 127/80
[2022-08-08] MEDS: ONDANSETRON HCL 4 MG/2 ML VIAL IV PRN (18:05)
[2022-08-08] MEDS: RIVAROXABAN 20 MG TAB PO SCH (18:30)
[2022-08-08] MEDS: ATORVASTATIN 20 MG TAB PO SCH (21:14)
[2022-08-08 22:00] VITALS: BP 124/67
[2022-08-09] MEDS: ACCU-CHEK COMFORT CURVE STRIP VI SCH ×5 (00:57→16:00)
[2022-08-09] MEDS: InsuLIN REG 1unit/0.01ml Soln (100units/ml) SC SCH ×5 (04:00→16:21)
[2022-08-09] MEDS: traMADol HCL 50 MG TAB PO PRN ×2 (04:11→11:17)
[2022-08-09 05:00] VITALS: BP 121/66
[2022-08-09 09:20] VITALS: BP 127/77
[2022-08-09] MEDS: PANTOPRAZOLE 40 MG TAB PO SCH (09:40)
[2022-08-09] MEDS: LISINOPRIL 20 MG TAB PO SCH (09:44)
[2022-08-09] MEDS: levoFLOXacin 500MG 100 ML IV SCH (09:44)
[2022-08-09] MEDS: FUROSEMIDE 40 MG/4 ML VIAL IV SCH (09:44)
[2022-08-09 13:06] VITALS: BP 127/74
[2022-08-09 17:29] VITALS: BP 105/65
[2022-08-09] MEDS: RIVAROXABAN 20 MG TAB PO SCH (17:51)
[2022-08-09 18:05] VITALS: BP 105/65
== END 2022-08-09 18:20 | disposition home or self-care (01) | DRG 149 ==
LOC: ER 07:16 → EDBD 07:16 → TELE 14:08 → TELE-E-ADS 08-06 13:26 → TELE-EAST 08-06 19:50
PROVIDERS: ADMIT Nurse Practitioner; ATTEND Nurse Practitioner
DX: H81.10 Benign paroxysmal vertigo, unspecified ear (principal); I50.21 Acute systolic (congestive) heart failure; I42.8 Other cardiomyopathies; I16.0 Hypertensive urgency; E11.65 Type 2 diabetes mellitus with hyperglycemia; E66.01 Morbid (severe) obesity due to excess calories; J45.909 Unspecified asthma, uncomplicated; E78.5 Hyperlipidemia, unspecified; I48.91 Unspecified atrial fibrillation; Z20.822 Contact with and (suspected) exposure to COVID-19; F41.9 Anxiety disorder, unspecified; I25.2 Old myocardial infarction; Z86.73 Personal history of transient ischemic attack (TIA), and cerebral infarction without residual deficits; Z88.0 Allergy status to penicillin; Z79.899 Other long term (current) drug therapy; Z79.891 Long term (current) use of opiate analgesic; Z79.82 Long term (current) use of aspirin; Z79.4 Long term (current) use of insulin; Z68.39 Body mass index [BMI] 39.0-39.9, adult; Z82.49 Family history of ischemic heart disease and other diseases of the circulatory system; Z83.3 Family history of diabetes mellitus; Z80.3 Family history of malignant neoplasm of breast; Z91.14 Patient's other noncompliance with medication regimen; I11.0 Hypertensive heart disease with heart failure
CPT/HCPCS: 36415; 70450; 70551; 71045; 80053; 80061; 81001; 82962; 83735; 83880; 84484; 85025; 85610; 85730; 87086; 87426; 93005; 93306; 93886; 96374; 96375; G0378; J1815; J1956; J2405; J3490

== ENCOUNTER 2022-12-18 11:31 | Emergency (ER) | payer MEDICARE, MEDICAID ==
[~2022-12-18] VITALS: Ht 165.1 cm; Wt 115.9 kg
[~2022-12-18 11:31] MED LIST changes: +ALBUAER3 INH; +DILT120C44 PO; +DIPH25CA66 PO; +HYDR-4072 PO; +LEVO500T31 PO; -LISI40TA11 PO; +LISI40TA16 PO; -PRE1T PO; +SIMV10TA20 PO; -SIMV10TA84 PO
[2022-12-18] MEDS ORDERED: ALBUTEROL SULF 2.5 MG/0.5ML(0.5%) NEB SOLN NEB ONE (12:15)
[2022-12-18] MEDS ORDERED: IPRATROPIUM BROM 0.5 MG/2.5ML INH SOL NEB ONE (12:15)
[2022-12-18] MEDS ORDERED: methylPREDNISolone SOD SUCC 125 MG/2 ML VL IV ONE (12:15)
[2022-12-18 12:54] LABS: Urine Bacteria FEW /hpf (None Seen); Urine Blood Negative /uL (Negative); Urine Specific Gravity 1.008 (1.001-1.035); Urine WBC 1 /hpf (0 - 5)
[2022-12-18 13:02] LABS: Basophils # (auto) 0.1 10 ^3/uL (0-0.2); Basophils % (auto) 1.1 % (0.0-2.0); Eosinophils # (auto) 0.1 10 ^3/uL (0-0.8); Hematocrit 37.2 % (36.0-46.0); Hemoglobin 12.3 g/dL (12.2-16.2); Lymphocytes # (auto) 1.7 10 ^3/uL (0.4-5.4); Lymphocytes % (auto) 17.1 % (10.0-50.0); Mean Corpuscular Hemoglobin 29.7 pg (28.0-32.0); Mean Corpuscular Volume 90.1 fL (80.0-100.0); Monocytes # (auto) 0.5 10 ^3/uL (0-1.3); Neutrophils # (auto) 7.4 10 ^3/uL (1.6-8.6); Neutrophils % (auto) 75.8 % (37.0-80.0); Red Blood Cells 4.13 10^6/uL (4.0-5.20); Red Cell Distribution Width 14.5 % (11.8-14.3); White Blood Cell 9.8 10^3/uL (4.4-10.8)
[2022-12-18 13:06] LABS: Albumin 3.5 g/dL (3.4-5.0); BUN/Creatinine Ratio 10.9 (10.0-20.0); Calcium 8.8 mg/dL (8.5-10.1); Magnesium 1.8 mg/dL (1.6-2.6); Potassium 4.4 mmol/L (3.5-5.1)
[2022-12-18 13:09] LABS: Bilirubin, Total 0.8 mg/dL (0.2-1.0); Total Protein 7.5 g/dL (6.4-8.2)
[2022-12-18] MEDS ORDERED: LEVALBUTEROL HCL 1.25 MG/3 ML NEB NEB STA (18:48)
[2022-12-18] MEDS ORDERED: LEVALBUTEROL HCL 1.25 MG/3 ML NEB NEB ONE (19:00)
[2022-12-18] MEDS ORDERED: LEVA0.6320 IN (19:38)
[2022-12-18] MEDS ORDERED: NITR-87 PO (19:44)
[2022-12-18] MEDS ORDERED: FUROSEMIDE 20 MG/2 ML VIAL IV ONE (19:45)
[2022-12-18] MEDS ORDERED: PRED20TA2 PO (19:46)
[2022-12-18 21:39] VITALS: BP 136/90
[2022-12-19] MEDS ORDERED: LEVALBUTEROL HCL 1.25 MG/3 ML NEB NEB SCH
== END 2022-12-18 21:41 | disposition home or self-care (01) ==
LOC: ER 11:31
DX: N39.0 Urinary tract infection, site not specified (principal); R06.02 Shortness of breath; I10 Essential (primary) hypertension; E11.9 Type 2 diabetes mellitus without complications; I48.91 Unspecified atrial fibrillation; J45.909 Unspecified asthma, uncomplicated; G89.29 Other chronic pain; E78.5 Hyperlipidemia, unspecified; Z96.652 Presence of left artificial knee joint
CPT/HCPCS: 36415; 71045; 80053; 81001; 83605; 83735; 83880; 84484; 85025; 93005; 94640; 96374; 96375; 99285; J1940; J2930; J7612; J7644

== ENCOUNTER 2023-01-23 15:17 | Inpatient (IN) | payer MEDICARE, MEDICAID ==
[~2023-01-23] VITALS: Ht 165.1 cm; Wt 130.0 kg
[~2023-01-23 15:17] MED LIST changes: +LEVA0.6320 IN; +NITR-87 PO; +PRED20TA2 PO
[2023-01-23 15:43] LABS: Basophils # (auto) 0.1 10 ^3/uL (0-0.2); Basophils % (auto) 1.4 % (0.0-2.0); Eosinophils # (auto) 0 10 ^3/uL (0-0.8); Eosinophils % (auto) 0.4 % (0.0-7.0); Hematocrit 40.3 % (36.0-46.0); Hemoglobin 13.3 g/dL (12.2-16.2); Lymphocytes # (auto) 1.7 10 ^3/uL (0.4-5.4); Lymphocytes % (auto) 15.9 % (10.0-50.0); Mean Corpuscular Hemoglobin 29.7 pg (28.0-32.0); Monocytes # (auto) 0.6 10 ^3/uL (0-1.3); Monocytes % (auto) 5.4 % (0.0-12.0); Neutrophils # (auto) 8.2 10 ^3/uL (1.6-8.6); Neutrophils % (auto) 76.9 % (37.0-80.0); Nucleated Red Blood Cells % 0.2 %; Red Blood Cells 4.48 10^6/uL (4.0-5.20); Red Cell Distribution Width 14.4 % (11.8-14.3); White Blood Cell 10.7 10^3/uL (4.4-10.8)
[2023-01-23 16:16] LABS: Albumin 3.7 g/dL (3.4-5.0); Calcium 8.6 mg/dL (8.5-10.1)
[2023-01-23 16:19] LABS: BUN/Creatinine Ratio 17.5 (10.0-20.0); Bilirubin, Total 0.6 mg/dL (0.2-1.0); Total Protein 7.3 g/dL (6.4-8.2)
[2023-01-23] MEDS ORDERED: methylPREDNISolone SOD SUCC 40 MG/ML VL IV ONE (18:15)
[2023-01-23] MEDS ORDERED: IPRATROPIUM BROM 0.5 MG/2.5ML INH SOL NEB ONE (18:15)
[2023-01-23] MEDS ORDERED: ALBUTEROL SULF 2.5 MG/0.5ML(0.5%) NEB SOLN NEB ONE (18:15)
[2023-01-23] MEDS ORDERED: SODIUM CHLORIDE 0.9% 1,000 ML IV SCH (18:45)
[2023-01-23] MEDS ORDERED: MORPHINE SULFATE INJ 2 MG/ml SYRG IV PRN (18:45)
[2023-01-23] MEDS ORDERED: NITROGLYCERIN 0.4 MG SL TAB SL PRN (18:45)
[2023-01-23] MEDS ORDERED: DEXTROSE (50%) 50ML SYRG IV PRN ×2 (18:45→19:30)
[2023-01-23] MEDS ORDERED: ACETAMINOPHEN 325 MG TAB PO PRN (18:45)
[2023-01-23 19:00] VITALS: O2SAT 97
[2023-01-23] MEDS ORDERED: ALBUTEROL SULF 2.5 MG/0.5ML(0.5%) NEB SOLN NEB PRN (19:30)
[2023-01-23 19:51] LABS: Cholesterol 124 mg/dL (< 200); HDL Cholesterol 56 mg/dL (40-59); LDL Cholesterol 63 mg/dL (< 100); Triglycerides 96 mg/dL (< 150)
[2023-01-23] MEDS ORDERED: IPRATROPIUM BROM 0.5 MG/2.5ML INH SOL NEB SCH (22:00)
[2023-01-23] MEDS ORDERED: InsuLIN REG 1unit/0.01ml Soln (100units/ml) SC SCH (22:00)
[2023-01-23] MEDS ORDERED: ALBUTEROL SULF 2.5 MG/0.5ML(0.5%) NEB SOLN NEB SCH (22:00)
[2023-01-23] MEDS ORDERED: ACCU-CHEK COMFORT CURVE STRIP VI SCH (22:00)
[2023-01-24] VITALS (15 sets, daily range): BP systolic 132–155; BP diastolic 75–98; PULSE 61–112; RESP 15–20; TEMP 97.5–97.7; O2SAT 92–99
[2023-01-24] MEDS: InsuLIN REG 1unit/0.01ml Soln (100units/ml) SC SCH ×4 (01:40→21:37)
[2023-01-24] MEDS: ACCU-CHEK COMFORT CURVE STRIP VI SCH ×5 (01:40→21:38)
[2023-01-24] MEDS: HYDROcodone-ACET 5/325MG TAB PO PRN ×3 (02:24→21:27)
[2023-01-24 06:00] LABS: Basophils # (auto) 0.1 10 ^3/uL (0-0.2); Basophils % (auto) 0.7 % (0.0-2.0); Eosinophils # (auto) 0 10 ^3/uL (0-0.8); Eosinophils % (auto) 0.2 % (0.0-7.0); Hematocrit 43.6 % (36.0-46.0); Hemoglobin 14.5 g/dL (12.2-16.2); Lymphocytes # (auto) 1.1 10 ^3/uL (0.4-5.4); Lymphocytes % (auto) 8.3 % (10.0-50.0); Mean Corpuscular Hemoglobin 30.2 pg (28.0-32.0); Mean Corpuscular Hgb Conc. 33.3 g/dL (32.0-36.0); Mean Corpuscular Volume 90.5 fL (80.0-100.0); Monocytes # (auto) 0.2 10 ^3/uL (0-1.3); Monocytes % (auto) 1.4 % (0.0-12.0); Neutrophils # (auto) 11.6 10 ^3/uL (1.6-8.6); Neutrophils % (auto) 89.4 % (37.0-80.0); Nucleated Red Blood Cells % 0.1 %; Red Blood Cells 4.82 10^6/uL (4.0-5.20); Red Cell Distribution Width 14.1 % (11.8-14.3); White Blood Cell 12.9 10^3/uL (4.4-10.8)
[2023-01-24 06:05] LABS: Albumin 3.9 g/dL (3.4-5.0); Calcium 8.9 mg/dL (8.5-10.1); Potassium 3.9 mmol/L (3.5-5.1)
[2023-01-24 06:08] LABS: BUN/Creatinine Ratio 24.4 (10.0-20.0); Bilirubin, Total 0.9 mg/dL (0.2-1.0); Total Protein 8.3 g/dL (6.4-8.2)
[2023-01-24] MEDS: ALBUTEROL SULF 2.5 MG/0.5ML(0.5%) NEB SOLN NEB SCH ×3 (06:45→20:48)
[2023-01-24] MEDS: IPRATROPIUM BROM 0.5 MG/2.5ML INH SOL NEB SCH ×3 (06:46→20:48)
[2023-01-24] MEDS: ASPirin-EC 81 mg tab PO SCH (10:00)
[2023-01-24] MEDS: HCTZ 25 MG TAB PO SCH (10:00)
[2023-01-24] MEDS: CITALOPRAM HYDROBR 20 MG TAB PO SCH (10:01)
[2023-01-24] MEDS ORDERED: NITROGLYCERIN 50MG/250ML 250 ML IV SCH (13:00)
[2023-01-24] MEDS ORDERED: HEPARIN SODIUM (PORCINE) 5000 UNITS/ML 1ML VIAL IV ONE (13:00)
[2023-01-24] MEDS ORDERED: HEPARIN DRIP/D5W 100UNITS/ML 250 ML IV SCH (13:00)
[2023-01-24] MEDS ORDERED: LIDOCAINE 2%HCL (LOCAL ANESTH.) INJ 20ML MDV ONE (14:11)
[2023-01-24] MEDS ORDERED: IODIXANOL 320MG/ML 100ML BTL IV ONE (14:12)
[2023-01-24] MEDS ORDERED: ANGIOMAX 250 MG VIAL IV ONE (14:15)
[2023-01-24] MEDS ORDERED: fentaNYL CITRATE 100 MCG/2 ML VL ONE (14:15)
[2023-01-24] MEDS ORDERED: SODIUM CHL 0.9% 0 ML ONE (14:16)
[2023-01-24] MEDS ORDERED: MIDAZOLAM HCL 2MG/2ML 2ml VIAL (1mg/ml) ONE (14:16)
[2023-01-24] MEDS ORDERED: HEPARIN SODIUM (PORCINE) 5000 UNITS/ML 1ML VIAL ONE (14:19)
[2023-01-24 14:54] LABS: INR 1.1 (0.9-1.15); Partial Thromboplastin Time 30.7 SEC (24.5-34.5); Prothrombin Time 11.5 sec (9.3-11.8)
[2023-01-24] MEDS ORDERED: VERAPAMIL 2.5MG/ML INJ 2ML VIAL IV ONE (14:57)
[2023-01-24] MEDS ORDERED: RIVAROXABAN 20 MG TAB PO SCH (17:30)
[2023-01-25] VITALS (14 sets, daily range): BP systolic 139–153; BP diastolic 83–90; PULSE 69–90; RESP 16–20; TEMP 97.4–98.2; O2SAT 98–100
[2023-01-25 04:48] LABS: Urine Bacteria FEW /hpf (None Seen); Urine Blood Negative /uL (Negative); Urine Clarity Clear (Clear); Urine Color Yellow (Yellow); Urine Hyaline Cast FEW /lpf (0 - 2); Urine Protein, UAD TRACE (Negative); Urine Specific Gravity 1.025 (1.001-1.035); Urine Urobilinogen Normal (Negative); Urine WBC 26 /hpf (0 - 5); Urine pH 5.5 (5.0-8.0)
[2023-01-25 04:53] LABS: Alcohol, Urine < 3.0 mg/dL (0-10); Amphetamine Screen, Urine NEGATIVE (NEGATIVE); Barbiturate Scree,Urine NEGATIVE (NEGATIVE); Benzodiazephine Screen, Urine POSITIVE (NEGATIVE); Cannabinoid Screen, Urine NEGATIVE (NEGATIVE); Cocaine Screen, Urine NEGATIVE (NEGATIVE)
[2023-01-25 05:01] LABS: Opiate Scree,Urine POSITIVE (NEGATIVE); Phencyclidine Screen, Urine NEGATIVE (NEGATIVE)
[2023-01-25] MEDS: IPRATROPIUM BROM 0.5 MG/2.5ML INH SOL NEB SCH ×3 (06:35→19:12)
[2023-01-25] MEDS: ALBUTEROL SULF 2.5 MG/0.5ML(0.5%) NEB SOLN NEB SCH ×3 (06:35→19:12)
[2023-01-25] MEDS: HYDROcodone-ACET 5/325MG TAB PO PRN ×2 (06:47→22:13)
[2023-01-25] MEDS: InsuLIN REG 1unit/0.01ml Soln (100units/ml) SC SCH ×4 (06:51→22:24)
[2023-01-25] MEDS: ACCU-CHEK COMFORT CURVE STRIP VI SCH ×4 (06:51→22:13)
[2023-01-25 08:02] LABS: Potassium 4.1 mmol/L (3.5-5.1)
[2023-01-25 08:10] LABS: Albumin 3.3 g/dL (3.4-5.0); BUN/Creatinine Ratio 32.5 (10.0-20.0); Calcium 8.9 mg/dL (8.5-10.1); Total Protein 6.7 g/dL (6.4-8.2)
[2023-01-25] MEDS: ASPirin-EC 81 mg tab PO SCH (10:33)
[2023-01-25] MEDS: CITALOPRAM HYDROBR 20 MG TAB PO SCH (10:33)
[2023-01-25] MEDS: HCTZ 25 MG TAB PO SCH (10:33)
[2023-01-25] MEDS: METOPROLOL SUCCINATE XL 50 MG TAB PO SCH (10:34)
[2023-01-25] MEDS: OMEPRAZOLE-SOD BICARB 20 MG POWDER PO SCH ×2 (11:54→11:55)
[2023-01-25] MEDS ORDERED: CEPH500T PO (12:44)
[2023-01-25] MEDS: levoFLOXacin 500MG 100 ML IV SCH (13:07)
[2023-01-25 14:00] LABS: Base Excess -1.4 mmol/L (-2.0-2.0)
[2023-01-25] MEDS ORDERED: RIVAROXABAN 20 MG TAB PO SCH (18:00)
[2023-01-26] VITALS (8 sets, daily range): BP systolic 149–157; BP diastolic 88–107; PULSE 53–82; RESP 16–20; TEMP 97.4–98.6; O2SAT 95–100
[2023-01-26] MEDS: HYDROcodone-ACET 5/325MG TAB PO PRN ×2 (05:16→12:01)
[2023-01-26] MEDS: ACCU-CHEK COMFORT CURVE STRIP VI SCH ×2 (06:33→12:03)
[2023-01-26] MEDS: InsuLIN REG 1unit/0.01ml Soln (100units/ml) SC SCH ×2 (06:36→11:59)
[2023-01-26] MEDS: IPRATROPIUM BROM 0.5 MG/2.5ML INH SOL NEB SCH ×2 (07:25→12:52)
[2023-01-26] MEDS: ALBUTEROL SULF 2.5 MG/0.5ML(0.5%) NEB SOLN NEB SCH ×2 (07:26→12:52)
[2023-01-26] MEDS: levoFLOXacin 500MG 100 ML IV SCH (08:59)
[2023-01-26] MEDS: ASPirin-EC 81 mg tab PO SCH (09:02)
[2023-01-26] MEDS: METOPROLOL SUCCINATE XL 50 MG TAB PO SCH (09:06)
[2023-01-26] MEDS: CITALOPRAM HYDROBR 20 MG TAB PO SCH (09:06)
[2023-01-26] MEDS: HCTZ 25 MG TAB PO SCH (09:06)
[2023-01-26] MEDS: OMEPRAZOLE-SOD BICARB 20 MG POWDER PO SCH (09:15)
== END 2023-01-26 13:26 | disposition home or self-care (01) | DRG 281 ==
LOC: ER 15:17 → TELE 18:45 → TELE-EAST 01-24 18:18
PROVIDERS: ADMIT Internal Medicine; ATTEND Nurse Practitioner
PROC: 4A023N7 Measurement of Cardiac Sampling and Pressure, Left Heart, Percutaneous Approach (ICD-10-PCS; principal; 2023-01-24)
PROC: B211YZZ Fluoroscopy of Multiple Coronary Arteries using Other Contrast (ICD-10-PCS; 2023-01-24)
PROC: B215YZZ Fluoroscopy of Left Heart using Other Contrast (ICD-10-PCS; 2023-01-24)
DX: I21.4 Non-ST elevation (NSTEMI) myocardial infarction (principal); I48.20 Chronic atrial fibrillation, unspecified; N30.00 Acute cystitis without hematuria; Z68.42 Body mass index [BMI] 45.0-49.9, adult; E78.5 Hyperlipidemia, unspecified; I11.0 Hypertensive heart disease with heart failure; E66.01 Morbid (severe) obesity due to excess calories; E11.65 Type 2 diabetes mellitus with hyperglycemia; J45.909 Unspecified asthma, uncomplicated; Z86.73 Personal history of transient ischemic attack (TIA), and cerebral infarction without residual deficits; Z88.0 Allergy status to penicillin; Z83.3 Family history of diabetes mellitus; Z79.01 Long term (current) use of anticoagulants; Z79.4 Long term (current) use of insulin; Z80.3 Family history of malignant neoplasm of breast; Z82.49 Family history of ischemic heart disease and other diseases of the circulatory system; Z90.49 Acquired absence of other specified parts of digestive tract
CPT/HCPCS: 36415; 36600; 71045; 80053; 80061; 80307; 81001; 82805; 82962; 83036; 83880; 84443; 84484; 85025; 85610; 85730; 87040; 87086; 93005; 93306; 93458; 94640; 96361; 96374; 99152; 99153; 99291; G0378; J1815; J1956; J2250; Q9967